=== PATIENT | male | born 1990 | race Caucasian/White ===

== ENCOUNTER 2020-11-01 21:47 | Emergency (ER) | payer OTHER ==
[~2020-11-01] VITALS: Ht 170.2 cm; Wt 77.1 kg
[2020-11-01] MEDS ORDERED: NOHOMEMEDICATIONS (22:05)
[2020-11-01 23:17] VITALS: BP 155/82
== END 2020-11-01 23:17 | disposition home or self-care (01) ==
LOC: ER 21:47
DX: S81.811A Laceration without foreign body, right lower leg, initial encounter (principal); F12.90 Cannabis use, unspecified, uncomplicated; W25.XXXA Contact with sharp glass, initial encounter; Y93.89 Activity, other specified; Y92.096 Garden or yard of other non-institutional residence as the place of occurrence of the external cause; Y99.9 Unspecified external cause status